=== PATIENT | female | born 1990 | race African-American/Black ===

== ENCOUNTER 2021-02-06 18:17 | Emergency (ER) | payer SELFPAY ==
--- NOTE | 2021-02-06 20:13 | PC.NURSE ---
No answer when called to triage at 1911 and 1955.
== END 2021-02-06 20:24 | disposition left against medical advice (07) ==
LOC: ANHED 20:22
DX: Z53.21 Procedure and treatment not carried out due to patient leaving prior to being seen by health care provider (principal)
CPT/HCPCS: 99199